=== PATIENT | female | born 1995 | race Hispanic/Latino ===

== ENCOUNTER 2018-04-09 19:52 | Observation (INO) | payer OTHER ==
[~2018-04-09] VITALS: Ht 149.9 cm; Wt 70.8 kg
[2018-04-09] MEDS ORDERED: LACTATED RINGERS 1000ML 1,000 ML IV SCH (20:15)
[2018-04-09 20:32] LABS: APPEARANCE,URINE Cloudy (CLEAR); BILIRUBIN,URINE Negative (NEGATIVE); COLOR,URINE Dark Yellow (YELLOW); GLUCOSE, URINE (UA) Negative (NEGATIVE); KETONES,URINE >=80 mg/dL (NEGATIVE); LEUKOCYTE ESTERASE ,URINE Moderate (NEGATIVE); NITRATE,URINE Negative (NEGATIVE); OCCULT BLOOD,URINE Negative (NEGATIVE); PROTEIN,URINE Trace (NEGATIVE)
[2018-04-09 20:38] LABS: AMPHET/METH SCREEN,URINE NEGATIVE (NEGATIVE); BARBITURATE SCREEN, URINE NEGATIVE (NEGATIVE); BENZODIAZEPINES SCREEN,URINE NEGATIVE (NEGATIVE); CANNABINOID SCREEN,URINE NEGATIVE (NEGATIVE); COCAINE SCREEN,URINE NEGATIVE (NEGATIVE); OPIATE SCREEN,URINE NEGATIVE (NEGATIVE); PHENCYCLIDINE SCREEN,URINE NEGATIVE (NEGATIVE)
[2018-04-09 20:40] LABS: RBC,URINE None Seen /HPF (0-1)
[2018-04-09 20:41] LABS: BACTERIA,URINE Moderate /HPF (None Seen); MUCUS,URINE Many LPF (None Seen)
[2018-04-09 21:50] VITALS: BP 119/75
[2018-04-09] MEDS ORDERED: CEFTRIAXONE SODIUM 1 GM ONE (22:18)
[2018-04-09] MEDS ORDERED: CEFTRIAXONE SODIUM 1 GM IVP ONE (22:30)
== END 2018-04-10 | disposition home or self-care (01) ==
LOC: EDH 19:52 → LDH 19:53
PROVIDERS: ADMIT Internal Medicine; ATTEND Internal Medicine
DX: O26.893 Other specified pregnancy related conditions, third trimester (principal); M54.6 Pain in thoracic spine; R10.11 Right upper quadrant pain; Z79.899 Other long term (current) drug therapy
CPT/HCPCS: 80305; 81001; 99284; G0378 ×4; J0696; 96360; 96361; 96374

== ENCOUNTER 2018-04-18 23:43 | Inpatient (IN) | payer OTHER | END 2018-04-22 19:19 | disposition home or self-care (01) | LOC: EDH 23:43 → EDHIP 23:44 → 3BH 04-19 17:42 | DX: K80.67 Calculus of gallbladder and bile duct with acute and chronic cholecystitis with obstruction (principal); N39.0 Urinary tract infection, site not specified; K76.0 Fatty (change of) liver, not elsewhere classified ==